=== PATIENT | female | born 2000 | race African-American/Black ===

== ENCOUNTER 2022-06-22 13:23 | Emergency (ER) | payer OTHER ==
[~2022-06-22] VITALS: Ht 170.2 cm; Wt 78.6 kg
[2022-06-22 13:42] VITALS: BP 128/92; TEMP 99.3
[2022-06-22 14:11] LABS: COLLECTION METHOD CLEAN CATCH
[2022-06-22 14:20] LABS: URINE COLOR Yellow (YELLOW)
[2022-06-22 14:21] LABS: PH 7 (5-8); URINE APPEARANCE Hazy (CLEAR/HAZY); URINE GLUCOSE Negative (NEGATIVE); URINE PROTEIN(semi-quant) 1+ (NEGATIVE)
[2022-06-22 14:22] LABS: URINE BLOOD Negative (NEGATIVE); URINE KETONE 1+ (NEGATIVE); URINE NITRATE Negative (NEGATIVE)
[2022-06-22 14:23] LABS: MUCOUS Present (NOT PRESENT); SQUAMOUS EPITHELIAL 0-2 /hpf (0-10); URINE BACTERIA None Seen /hpf (NONE SEEN); URINE RBC 0-2 /hpf (0-2)
[2022-06-22] MEDS ORDERED: DOXYCYCLINE 10100 MG PO (15:07)
[2022-06-22 15:32] VITALS: PULSE 72
[2022-06-24] MEDS ORDERED: VALTREX1 GM PO (10:58)
== END 2022-06-22 15:32 | disposition home or self-care (01) ==
LOC: COL.ER 13:23
PROVIDERS: Emergency Medicine
DX: N89.8 Other specified noninflammatory disorders of vagina (principal); R30.0 Dysuria; Z20.822 Contact with and (suspected) exposure to COVID-19
CPT/HCPCS: J0696